=== PATIENT | male | born 1980 | race Caucasian/White ===

== ENCOUNTER 2025-04-12 14:23 | Inpatient (IN) | payer MEDICAID ==
[~2025-04-12] VITALS: Ht 185.4 cm; Wt 72.0 kg
[2025-04-12] MEDS ORDERED: NO HOME MEDS (14:42)
--- NOTE | 2025-04-12 14:54 | Physician Documentation ---
History of Present Illness ~ Chief Complaint: Abdominal Pain w/vomiting Stated Complaint: TRANSFER Time Seen by MD: 14:27 Source: patient, EMS, RN notes reviewed, EMS notes reviewed, old records Mode of Arrival: EMS Exam Limitations: no limitations HPI Chief Complaint: Abdominal pain, vomiting Caveat: None Independent Historians: None History of Present Illness: Patient is a 44-year-old man transferred here from [facility] for abdominal pain and vomiting secondary to a small-bowel obstruction. Patient went into the ER yesterday evening with sudden acute sharp abdominal pain with nausea and vomiting. Patient was found to have a small- bowel obstruction with a dilated stomach and dilated small bowel to the ileum on CT scan. Patient was given an NG-tube in his symptoms improved significantly. Patient is currently asymptomatic with no abdominal pain. Patient was treated with 4 mg of IV morphine, Dilaudid 0.5 mg, IV Tylenol 1000 mg IV patient was also given 1 L of LR. Patient was also given 40 mEq of IV potassium. Patient was also given lactulose. Patient has had a a scant amount of diarrhea. Patient's lab work was remarkable for a lactic acid of 3.6 that improved to 2. Review of systems: All systems were reviewed and are negative except for what is indicated in the history of present illness. Past Medical History: None per patient Past Surgical History: None per patient Social History: Patient denies drug use however he has a urine drug screen from [facility] that has positive for methamphetamine. Denies alcohol use. Admits to tobacco use. Medications: Reviewed as documented Nursing Notes Allergies: Reviewed as documented in Nursing Notes Medication Reconciliation Allergies: Coded Allergies: Penicillins (Unverified Allergy, Unknown, 04/12/25) Miscellaneous Medications Home Med List (No Home Medications), (Reported) Review of Systems All Other Systems at this time: Reviewed and Negative ROS Patient denies any other acute symptoms other than above. All other systems are negative Physical Exam Vital Signs: RN Vital Signs have been reviewed: Yes, Temperature: 98.4, Heart Rate: 70, Respiratory Rate: 16, BP: 128/84, Pulse Oximetry: 100, Weight: 72.000 Oxygen Flow Rate: 0 Pulse Oximetry Reflects: adequate oxygenation Physical Exam General Appearance: No distress, cachectic HEENT: Normal OP, moist oral mucosa, PERRL, EOMI, NG tube present Neck: supple, normal ROM, trachea midline Pulmonary: No respiratory distress, CTA, BS equal Cardiac: RRR, no murmur, rub or gallop, GI: nondistended, soft, nontender, normal bowel sounds, no guarding, no rebound Extremities: normal ROM, no swelling, non-tender Skin: intact, dry, warm, no rashes Neuro: AAOx3, speech is clear, no focal motor weakness Psych: normal affect, good eye contact, no apparent hallucination, normal speech Progress Results/Orders Results/Orders Orders - KODAK RAMIREZ MD Lipase (04/12/25 14:36) Urinalysis, Cult If Indicated (04/12/25 14:36) Morphine 4mg/Ml Inj. (Morphine Inj.) (04/12/25 14:40) Monitor (04/12/25 14:36) Saline Lock (04/12/25 14:36) Nothing By Mouth (04/12/25 Dinner) CMP (04/12/25 14:36) Chest,Single View (04/12/25 14:39) Normal Saline 1000ml (0.9% Sodium Chlori (04/12/25 14:40) Nasal Gastric Tube (04/12/25 ) Ct Abdomen Pelvis (04/12/25 15:43) Page Hospitalist (04/12/25 15:46) Fill Out Med Reconciliation (04/12/25 15:46) Lipid Panel (04/12/25 14:55) TSH (04/12/25 14:55) MG (04/12/25 14:55) Completed Orders - KODAK RAMIREZ MD Cbc/Diff (04/12/25 14:36) Ondansetron Inj. (Zofran 4mg/2ml Vial) (04/12/25 14:40) Chest,Single View (04/12/25 14:39) Ondansetron Inj. (Zofran 4mg/2ml Vial) (04/12/25 15:05) Ct Abdomen Pelvis (04/12/25 15:43) Medications Received in ER Medications (Trade) Dose Ordered Sig/Juan Route PRN Reason Start Time Stop Time Status Last Admin Dose Admin (Zofran 4mg/2ml vial) 4 mg ONCE ONCE IV 04/12/25 14:40 04/12/25 14:41 DC 04/12/25 15:35 4 MG (morphine inj.) 4 mg Q20M PRN IV moderate to severe pain 4-10 04/12/25 14:40 04/12/25 15:35 4 MG Sodium Chloride 1,000 ml @ 150 mls/hr Q6H40M ONCE IV 04/12/25 14:40 04/12/25 21:19 04/12/25 15:34 150 MLS/HR Vital Signs 04/12/25 04/12/25 04/12/25 14:24 14:42 15:35 Temp 98.4 Pulse 68 70 Resp 16 14 B/P (MAP) 129/89 128/84 (99) Pulse Ox 97 100 O2 Flow Rate 0 Laboratory Tests Test 04/12/25 14:55 White Blood Count 10.5 Red Blood Count 5.02 Hemoglobin 15.6 Hematocrit 45.9 Mean Corpuscular Volume 91.3 Mean Corpuscular Hemoglobin 31.1 H Mean Corpuscular Hemoglobin Concent 34.0 Red Cell Distribution Width 14.9 H Platelet Count 357 Mean Platelet Volume 7.3 L Neutrophils (%) (Auto) 70.4 Lymphocytes (%) (Auto) 15.8 L Monocytes (%) (Auto) 10.5 Eosinophils (%) (Auto) 3.0 Basophils (%) (Auto) 0.3 Neutrophils # (Auto) 7.4 Lymphocytes # (Auto) 1.6 Monocytes # (Auto) 1.1 H Eosinophils # (Auto) 0.3 Basophils # (Auto) 0.0 CBC Comment Sodium Level 142 Potassium Level 3.9 Chloride Level 108 H Carbon Dioxide Level 28.2 Anion Gap 6 L Blood Urea Nitrogen 11 Creatinine 0.88 Estimated GFR/1.73 m2 > 90 BUN/Creatinine Ratio 12.5 Glucose Level 92 Calcium Level 8.1 L Total Bilirubin 0.5 Aspartate Amino Transf (AST/SGOT) 13 Alanine Aminotransferase (ALT/SGPT) 14 Alkaline Phosphatase 46 Total Protein 6.3 L Albumin 3.1 L Globulin 3.2 Albumin/Globulin Ratio 1.0 L Lipase 21 Chemistry Comments Medical Decision Making Findings Differential diagnosis includes but is not limited to: Gastric outlet obstruction, small-bowel obstruction, internal hernia, sigmoid volvulus, cecal volvulus, colon cancer, electrolyte abnormalities, dehydration, acute kidney injury Chest x-ray, single view, indication: Abdominal pain Independent interpretation: NG tube present and is in the stomach. Lungs are clear, normal mediastinum, normal cardiac silhouette. No acute cardiopulmonary process. Abdomen and pelvis CT scan without IV contrast, indication: Abdominal pain, possible small-bowel obstruction Impression: 1. No acute findings identified. 2. Trace abdominopelvic ascites. Laboratory data independent interpretation: CBC: Remarkable CMP: Unremarkable Urinalysis: Emergency department course/medical decision-making: Patient is a 44-year-old man who presents with a small-bowel obstruction treated with a an NG-tube from [facility]. Patient is afebrile and hemodynam ically stable. Patient has a normal abdominal exam. Hospitalist will be called for admission and surgery will be consulted. Repeat lab work is ordered and pending. Lab work is unremarkable. There was no evidence of an acidosis given the patient's normal anion gap. Patient is placed on maintenance fluids at 150 cc of normal saline per hour. Patient is kept NPO with NG tube to low intermittent suction. Dr. clarke our surgeon has been consulted. Repeat CT of the abdomen and pelvis has been ordered in his pending because a disc of the prior imaging was never sent with the patient. CT scan does not show any acute process or small-bowel obstruction. Patient will still be admitted and patient will likely be able to start drinking clear liquids tomorrow. Consultation/communications: 3:46 p.m.: Call placed out to hospitalist for admission. 3:56 p.m.: Case discussed with the resident hospitalist, Dr. Ordonez. He will evaluate the patient for admission. Departure Time of Disposition: 14:59 Disposition: ADMITTED INPATIENT Admitted to Inpatient Unit: to hospitalist Admission Level of Care: Med/Surg Impression: Primary Impression: Small bowel obstruction Condition: Improved Referrals: NO PRIMARY CARE PROVIDER (PCP) Education Educated: Patient Educated regarding: diagnosis, treatment Signature Scribe Signature: No scribe Attestation: No scribe KODAK RAMIREZ MD Apr 12, 2025 14:54
--- NOTE | 2025-04-12 14:58 | RADIOLOGY REPORT ---
CHEST RADIOGRAPH Indication: tobacco use Technique: Single frontal view of the chest was obtained COMPARISON: None FINDINGS: Lines and Tubes: None Lungs: Clear Pleura: No effusion. No pneumothorax. Cardiomediastinal contours: Unremarkable Bones: Unremarkable IMPRESSION: 1. No acute disease.
[2025-04-12 15:05] LABS: MEAN PLATELET VOLUME 7.3 FL (7.4-10.4); RED CELL DISTRIBUTION WIDTH 14.9 % (11.5-14.5)
[2025-04-12] MEDS: ondansetron/PF 4mg/2ml inj IV ONE ×2 (15:05→15:35)
[2025-04-12 15:33] LABS: CREATININE 0.88 MG/DL (0.60-1.10); TOTAL CARBON DIOXIDE 28.2 MMOL/L (24-32); eCRCL 109 ML/MIN; eGFR > 90 ML/MIN
[2025-04-12] MEDS: normal saline 1000ml 1,000 ML IV ONE (15:34)
[2025-04-12] MEDS: morphine 4 MG/ML inj SYRINge IV PRN (15:35)
[2025-04-12] MEDS ORDERED: magnesium hydroxide 30ml (MOM) UD suspension PO PRN (16:00)
[2025-04-12] MEDS ORDERED: magnesium sulf-water 2g/50mL 50 ML IV PRN (16:00)
[2025-04-12] MEDS ORDERED: magnesium Cl slow-release 64mg tablet PO PRN (16:00)
[2025-04-12] MEDS ORDERED: HYDROmorphone/PF 0.2 MG/ML SYRINGE IV PRN (16:00)
[2025-04-12] MEDS ORDERED: magnesium sulf-water 4G/100mL 100 ML IV PRN (16:00)
[2025-04-12] MEDS ORDERED: potassium Cl 20 mEq SR tablet PO PRN ×2 (16:00)
[2025-04-12] MEDS ORDERED: mag hydrox/Alum hydrox/simeth 30ml oral suspension PO PRN (16:00)
[2025-04-12] MEDS ORDERED: LIDOcaine 2% jelly 6ml syringe ***for topical use only MM ONE (16:00)
[2025-04-12] MEDS ORDERED: potassium Cl 40MEQ/1/2NS 520ml 520 ML IV PRN (16:00)
[2025-04-12] MEDS ORDERED: HYDROcodone/acetaminophen 5mg/325mg tablet PO PRN (16:00)
[2025-04-12] MEDS: LidoCAINE 2% Topical Jelly 11mL syringe (UROJET) MM ONE (16:18)
--- NOTE | 2025-04-12 16:32 | RADIOLOGY REPORT ---
Exam: CT CT ABDOMEN PELVIS History: Abdominal Pain Comparison Study: None Technique: Multidetector spiral CT of the abdomen was performed from lung bases to pubic symphysis. Imaging was performed without IV contrast. Axial, coronal and sagittal multiplanar reformats were obtained from the axial data set by the technologist. Radiation Dose : 1. Abdomen/Pelvis: CTDIvol 15.3 mGy, DLP 864 mGy*cm. Findings: Evaluation of solid organs is limited due to lack of intravenous contrast use. Lung Bases: No acute or significant lung base finding. Normal heart size. No pleural or pericardial effusion. Liver: The liver is normal in size. No focal lesions. Gallbladder and Biliary Tree: Unremarkable Spleen: Unremarkable Pancreas: The pancreas is grossly normal in appearance. Adrenal Glands: Unremarkable Kidneys: Kidneys are grossly normal without calculi or hydronephrosis. Bladder: Grossly unremarkable for degree of distention. Bowel: Enteric tube tip is in the stomach. Small bowel and colon are normal in caliber and distribution. Normal appendix is visualized in the right lower quadrant without findings of appendicitis. Ascites: Trace abdominopelvic ascites. Lymphadenopathy: No mesenteric, retroperitoneal or periportal lymphadenopathy. Abdominal Wall and Mesentery: Unremarkable. Vasculature: The visualized abdominal aorta is normal in size and caliber. Evaluation of abdominal and pelvic vessels is limited due to lack of intravenous contrast. Pelvic Organs: Unremarkable Musculoskeletal: No aggressive focal bony lesions, acute fractures or dislocation. IMPRESSION: 1. No acute findings identified. 2. Trace abdominopelvic ascites. Radiation optimization: All CT scans at this facility use at least one of these dose optimization techniques: automated exposure control mA and/or kV adjustment per patient size (includes targeted exams where dose is matched to clinical indication) or iterative reconstruction.
[2025-04-12 16:44] LABS: CHOL/HDL RATIO 2.8 (0.00-4.99); LDL CHOLESTEROL 54 MG/DL (50-100)
[2025-04-12 17:00] VITALS: BP 124/87; PULSE 59; RESP 18; TEMP 98.4; O2SAT 96
--- NOTE | 2025-04-12 17:36 | HISTORY AND PHYSICAL-Residence ---
History & Physical Providers to CC Resident Creating Document: LORENMARY LOGAN ~ History of Present Illness Reason for Admit\Complaint: Small bowel Obstruction History of Present Illness This is a 44-year-old male transferred from [facility] for for abdominal pain and for small bowel obstruction. Two days ago patient experienced sudden sudden onset epigastric and left upper quadrant abdominal pain which was 10/10 intensity sharp non-radiating, no aggravating and relieving factors, in view of that patient went to [facility], NG tube and pain meds were given to patient and patient reports that pain meds helped him little bit. He denies any nausea vomiting however he is complaining of diarrhea since couple of days which is watery in nature,as per patient yesterday he was tolerating solid and liquid diet. Currently patient pain is improved and abdominal pain is 2/10 and reports mild chest pain. This is the 1st time he has experienced this type of abdominal pain. He never had EGD or colonoscopy done and denies any past abdominal surgeries As per Medical Record of [place] Patient was found to have small-bowel obstruction with dilated proximal small bowel and collapsed small bowel distal to the ileum trace free fluid and lactic acidosis in view of that patient was transferred to [facility] for high level of care for surgery. And NG tube was placed. This is the 1st time he has experienced this type of abdominal pain. He never had EGD or colonoscopy done and denies any past abdominal surgeries Allergies: Coded Allergies: Penicillins (Unverified Allergy, Unknown, 04/12/25) Home Medications Home Medications Active Reported No Home Medications (Home Med List) Each Past Medical History Past Medical History Denies any past medical history Past Surgical History Surgical History Comment Denies any past surgical history Family History Family History: Patient reports no known family medical history. Past Social History Social History Comment Patient smokes half a pack of cigarettes since 30 years Denies alcohol and other recreational drugs As per [facility] UA tox is positive for amphetamine Lives alone in a mobile home. 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 Chest pressure, chest discomfort, palpitations, syncope, lower extremity edema, paroxysmal nocturnal dyspnea Respiratory: Mild shortness of breath, no cough or hemptoysis Gastrointestinal: Normal appetite. No nausea, vomiting, diarrhea, constipation, hematemesis, bloating, melena or fresh blood, reports abdominal pain over epigastric and left upper quadrant pain Musculoskeletal:no joint pain, no deformities Integumentary: No change in skin, hair, nails. No swelling, bruising, abrasions Neurologic: No headache, neck pain, numbness or tingling of the extremities, weakness Psychiatric: No delusions, depression, loss of interest in normal activity or change in sleep pattern, hallucinations, suicidal ideations Endocrine: No fatigue, weakness, polydipsia, polyuria, change in appetite, heat or cold intolerance, sweating, dry skin Hematological: No bleeding, petechiae, bruising Exam Vitals: Vital Signs Date Time Temp Pulse Resp B/P (MAP) Pulse Ox O2 Delivery O2 Flow Rate FiO2 04/12/25 17:00 60 144/86 (105) 99 0 04/12/25 16:00 12 04/12/25 14:24 98.4 General: General: awake, alert oriented to place, time, and person HEENT: No pallor present, no icterus, moist mucous membranes Neck: No masses and tenderness Resp: Unlabored. Lungs clear to auscultation bilaterally. Chest: Normal expansion. Cardiovascular: Regular Rate and rhythm, normal S1 and S2 without murmur, rub or gallop Abdomen: Soft and tender in epigastric and left upper quadrant abdominal pain, no organomegaly, no guarding and rigidity, bowel sounds present Neuro: No focal weakness in the upper and lower limb muscles, power of the muscles 5/5 bilateral upper and lower extremities, normal reflexes bilaterally. Cranial nerves intact Extremities: No cyanosis,clubbing or edema Skin: Warm and Dry. Psych: Normal affect Diagnostic Data Last Recorded Lab Results: 04/12/25 1455 04/12/25 1455 Advance Care Planning Advanced Care plannin - 30 Minutes (I spent 17 minutes in discussing various resuscitative measures with the patient and he chose to be full code.) Additional Plan This is a 44-year-old male transferred from [facility] in view of abdominal pain and small-bowel obstruction. Small-bowel Obstruction Possibly Functional As per [facility]:Patient was found to have small-bowel obstruction with dilated proximal small bowel and collapsed small bowel distal to the ileum with trace free fluid and lactic acidosis. CT Abdomen/Pelvis performed today at [facility] shows 1. No acute findings identified. Trace abdominopelvic ascites. Small bowel obstruction possibly resolved after passing NG tube Recommended to have bowel rest WBC count normal Started patient on ondansetron 4 mg IV q.6h prn Started patient on LR 75 mL/hour Follow up with lactic acid Dr. Pena has been consulted, awaiting recommendations Tobacco Use Disorder Patient smokes half pack a day since 30 years Substance use navigator consulted Code Status: Full code DVT Prophylaxis: SCDs GI Prophylaxis: Pantoprazole IV 40 mg Disposition: Patient has NG tube, if the patient passes gas, clamp the NG tube and check if patient is tolerating liquid diet, has been consulted awaiting recommendations, possibly discharged tomorrow. PGY2 resident attestation: I have seen and evaluated the patient independently. I have reviewed the history, physical examination, laboratory and imaging findings and the assessment and plan documented by the PGY1 resident. I agree with the findings and plan as documented with the following additions/modifications: Partial small-bowel obstruction, NG tube having 200 mL of output. Patient is not passing gas yet, currently NPO. Surgeon consulted for recommendations. Tian Argueta MD PGY 2 internal medicine resident Date of Service: Apr 12, 2025 Billing Provider: LESTER TORO MD, SANJAY, RES Apr 12, 2025 17:36 TIAN MCKENNA, RES Apr 12, 2025 18:54
[2025-04-12] MEDS ORDERED: ondansetron/PF 4mg/2ml inj IV PRN (18:20)
[2025-04-12] MEDS: K and/or MAG REPLACEMENT MC SCH (20:00)
[2025-04-12] MEDS: docusate sod 100mg capsule PO SCH (20:00)
[2025-04-12] MEDS: ondansetron/PF 4mg/2ml inj IV PRN (21:34)
[2025-04-12 22:00] VITALS: BP 125/77; PULSE 61; RESP 15; TEMP 98.7; O2SAT 98
[2025-04-12] MEDS: HYDROmorphone inj. 0.5 MG/0.5 ML DISP.SYRIN IV PRN (23:41)
[2025-04-12] MEDS: ringers solution, lacted 1,000 ML IV SCH (23:55)
[2025-04-13 05:53] LABS: MEAN PLATELET VOLUME 8.0 FL (7.4-10.4); RED CELL DISTRIBUTION WIDTH 14.6 % (11.5-14.5)
[2025-04-13 06:00] VITALS: BP 121/76; PULSE 58; RESP 15; TEMP 97.9; O2SAT 97
[2025-04-13 06:05] LABS: APTT 28 SECONDS (22-32); INR 1.0 INR
[2025-04-13 06:22] LABS: CHOL/HDL RATIO 2.8 (0.00-4.99); CREATININE 0.81 MG/DL (0.60-1.10); LDL CHOLESTEROL 50 MG/DL (50-100); TOTAL CARBON DIOXIDE 30.0 MMOL/L (24-32); eCRCL 119 ML/MIN; eGFR > 90 ML/MIN
[2025-04-13 06:31] LABS: PHOSPHORUS 2.7 MG/DL (2.3-4.5)
[2025-04-13 07:46] VITALS: RESP 16
[2025-04-13 10:00] VITALS: BP 116/81; PULSE 57; RESP 20; TEMP 98; O2SAT 97
[2025-04-13] MEDS ORDERED: metoclopramide 5 mg/ml inj IV PRN (11:00)
[2025-04-13 18:00] VITALS: BP 109/75; PULSE 68; RESP 12; TEMP 98.4; O2SAT 98
--- NOTE | 2025-04-13 20:40 | PROGRESS NOTE- Residence ---
Progress Note - Resident Providers to CC Resident Creating Document: MORRIS WESLEY RES ~ Antibiotic Timeout Antibiotic Ordered?: No Subjective Patient was examined at the bedside, he is draining dark red color liquid from NG tube. He did not have any bowel movement Objective Vital Signs Date Time Temp Pulse Resp B/P (MAP) Pulse Ox O2 Delivery O2 Flow Rate FiO2 04/13/25 18:30 60 04/13/25 18:00 98.4 12 109/75 (86) 98 Room Air 04/13/25 08:00 0.0 Result Diagram: 04/13/2543504/13/25435 General: awake, alert oriented to place, time, and person HEENT: No pallor present, no icterus, moist mucous membranes Neck: No masses and tenderness Resp: Unlabored. Lungs clear to auscultation bilaterally. Chest: Normal expansion. Cardiovascular: Regular Rate and rhythm, normal S1 and S2 without murmur, rub or gallop Abdomen: Soft and tender in epigastric and left upper quadrant abdominal pain, no organomegaly, no guarding and rigidity, hypoactive bowel sounds heard on auscultation Neuro: No focal weakness in the upper and lower limb muscles, power of the muscles 5/5 bilateral upper and lower extremities, normal reflexes bilaterally. Cranial nerves intact Extremities: No cyanosis,clubbing or edema Skin: Warm and Dry. Psych: Normal affect Coagulation Studies Laboratory Tests Test 04/13/25 04:36 Prothrombin Time 10.7 SECONDS (9.0-12.0) INR International Normalized Ratio 1.0 INR Activated Partial Thromboplast Time 28 SECONDS (22-32) Coagulation Comments Advance Care Planning Advanced Care plannin - 30 Minutes Assessment Assessment Small-bowel Obstruction Possibly Functional As per [facility]:Patient was found to have small-bowel obstruction with dilated proximal small bowel and collapsed small bowel distal to the ileum with trace free fluid and lactic acidosis. CT Abdomen/Pelvis performed today at [facility] shows 1. No acute findings identified. Trace abdominopelvic ascites. Small bowel obstruction possibly resolved after passing NG tube Recommended to have bowel rest WBC count normal Started patient on ondansetron 4 mg IV q.6h prn Started patient on LR 75 mL/hour Follow up with lactic acid Dr. Pena has been consulted, awaiting recommendations 04/13/2025 was consulted and did not recommend any surgery Vitals are stable and labs are normal Started Protonix 40 mg IV b.i.d. and metoclopramide 10 mg IV q.6 h Continue maintenance fluids Discontinue NG tube Tobacco Use Disorder Patient smokes half pack a day since 30 years Substance use navigator consulted Code Status: Full code DVT Prophylaxis: SCDs GI Prophylaxis: Pantoprazole IV 40 mg b.i.d. Disposition- patient will be monitored in ortho, discontinue NG tube Morris Wesley PGY1-Internal Medicine Resident Date of Service: Apr 13, 2025 Billing Provider: MORRIS WESLEY, RES MORRIS WESLEY, MARY Apr 13, 2025 20:40
[2025-04-13 22:00] VITALS: BP 110/67; PULSE 66; RESP 18; TEMP 98.3; O2SAT 99
[2025-04-14 06:26] LABS: APTT 30 SECONDS (22-32); INR 1.0 INR
[2025-04-14 06:28] LABS: MEAN PLATELET VOLUME 7.5 FL (7.4-10.4); RED CELL DISTRIBUTION WIDTH 14.2 % (11.5-14.5)
[2025-04-14 06:41] LABS: CREATININE 0.88 MG/DL (0.60-1.10); PHOSPHORUS 2.9 MG/DL (2.3-4.5); TOTAL CARBON DIOXIDE 26.9 MMOL/L (24-32); eCRCL 109 ML/MIN; eGFR > 90 ML/MIN
--- NOTE | 2025-04-14 08:08 | ELECTROCARDIOGRAPH REPORT ---
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
[2025-04-14] MEDS ORDERED: PANT40TA54 PO (11:07)
[2025-04-14] MEDS ORDERED: POLY17PO10 PO (11:07)
[2025-04-14] MEDS ORDERED: DOCU100C40 PO (11:07)
--- NOTE | 2025-04-14 13:37 | DISCHARGE SUMMARY-Residence ---
Discharge Summary Providers to CC Resident Creating Document: MARRY SHAY, MARY CC: LESTER TORO MD ~ Discharge Summary Admission Diagnosis: Small Bowel Obstruction Hospital Course DATE OF ADMISSION: 04/12/2025 DATE OF DISCHARGE: 04/14/2025 Discharge Diagnosis\Comment: Small-bowel Obstruction, ruled out Tobacco Use Disorder Operations\Procedures: None Consultants: Surgery- Dr. Pena Complications: None Condition on DC: Stable New Medications: Docusate Sodium (Docusate Sodium) 100 Mg Caps 1 CAP PO BID for CONSTIPATION for 10 Days, #20 CAP Pantoprazole Sodium (Pantoprazole Sodium) 40 Mg Tablet.dr 40 MG PO BKF for 30 Days, #30 TAB.SR Polyethylene Glycol 3350* (Miralax*) 1 Packet Packet 1 PACKET PO HS PRN for CONSTIPATION for 7 Days, #7 PACKET Discharge Summary: HPI as per admitting physician: This is a 44-year-old male transferred from [facility] for for abdominal pain and for small bowel obstruction. Two days ago patient experienced sudden sudden onset epigastric and left upper quadrant abdominal pain which was 10/10 intensity sharp non-radiating, no aggravating and relieving factors, in view of that patient went to [facility], NG tube and pain meds were given to patient and patient reports that pain meds helped him little bit. He denies any nausea vomiting however he is complaining of diarrhea since couple of days which is watery in nature,as per patient yesterday he was tolerating solid and liquid diet. Currently patient pain is improved and abdominal pain is 2/10 and reports mild chest pain. This is the 1st time he has experienced this type of abdominal pain. He never had EGD or colonoscopy done and denies any past abdominal surgeries As per Medical Record of [facility] Patient was found to have small-bowel obstruction with dilated proximal small bowel and collapsed small bowel distal to the ileum trace free fluid and lactic acidosis in view of that patient was transferred to [facility] for high level of care for surgery. And NG tube was placed. Hospital course: A 44-year-old male transferred from [facility] for abdominal pain and for small bowel obstruction evaluation. CT abdomen done in our facility showed no acute findings. We placed a NG tube for the patient and started the patient on ondansetron and lactated ringer. was consulted and as per his evaluation patient did not require any surgery. We initiated the patient on Protonix and metoclopramide as well. Patient has chronic tobacco use disorder substance use navigator was consulted Significant imaging Abdominal CT 04/12/2025 IMPRESSION: 1. No acute findings identified. 2. Trace abdominopelvic ascites. Physical examination at the time of discharge General: awake, alert oriented to place, time, and person HEENT: No pallor present, no icterus, moist mucous membranes Neck: No masses and tenderness Resp: Unlabored. Lungs clear to auscultation bilaterally. Chest: Normal expansion. Cardiovascular: Regular Rate and rhythm, normal S1 and S2 without murmur, rub or gallop Abdomen: Soft and tender in epigastric and left upper quadrant abdominal pain, no organomegaly, no guarding and rigidity, hypoactive bowel sounds heard on auscultation Neuro: No focal weakness in the upper and lower limb muscles, power of the muscles 5/5 bilateral upper and lower extremities, normal reflexes bilaterally. Cranial nerves intact Extremities: No cyanosis,clubbing or edema Skin: Warm and Dry. Psych: Normal affect Vital Signs Date Time Temp Pulse Resp B/P (MAP) Pulse Ox O2 Delivery O2 Flow Rate FiO2 04/14/25 08:00 Room Air 0.0 04/13/25 22:00 98.3 66 18 110/67 (81) 99 Laboratory Tests Test 04/12/25 14:55 04/12/25 18:47 04/13/25 04:36 04/13/25 11:31 White Blood Count 10.5 X10'3 8.9 X10'3 Red Blood Count 5.02 X10'6 4.84 X10'6 Hemoglobin 15.6 g/dl 14.8 g/dl Hematocrit 45.9 % 44.1 % Mean Corpuscular Volume 91.3 FL 91.0 FL Mean Corpuscular Hemoglobin 31.1 PG 30.5 PG Mean Corpuscular Hemoglobin Concent 34.0 g/dL 33.5 g/dL Red Cell Distribution Width 14.9 % 14.6 % Platelet Count 357 X10'3 296 X10'3 Mean Platelet Volume 7.3 FL 8.0 FL Neutrophils (%) (Auto) 70.4 % 60.9 % Lymphocytes (%) (Auto) 15.8 % 24.3 % Monocytes (%) (Auto) 10.5 % 11.2 % Eosinophils (%) (Auto) 3.0 % 3.4 % Basophils (%) (Auto) 0.3 % 0.2 % Neutrophils # (Auto) 7.4 X10'3 5.4 X10'3 Lymphocytes # (Auto) 1.6 X10'3 2.2 X10'3 Monocytes # (Auto) 1.1 X10'3 1.0 X10'3 Eosinophils # (Auto) 0.3 X10'3 0.3 X10'3 Basophils # (Auto) 0.0 X10'3 0.0 X10'3 CBC Comment Sodium Level 142 MMOL/L 144 MMOL/L Potassium Level 3.9 MMOL/L 4.0 MMOL/L Chloride Level 108 MMOL/L 106 MMOL/L Carbon Dioxide Level 28.2 MMOL/L 30.0 MMOL/L Anion Gap 6 8 Blood Urea Nitrogen 11 MG/DL 9 MG/DL Creatinine 0.88 MG/DL 0.81 MG/DL Estimated GFR/1.73 m2 > 90 ML/MIN > 90 ML/MIN BUN/Creatinine Ratio 12.5 11.1 Glucose Level 92 MG/DL 76 MG/DL Calcium Level 8.1 MG/DL 8.1 MG/DL Magnesium Level 1.7 MG/DL 1.9 MG/DL Total Bilirubin 0.5 MG/DL 0.5 MG/DL Aspartate Amino Transf (AST/SGOT) 13 U/L 18 U/L Alanine Aminotransferase (ALT/SGPT) 14 U/L 18 U/L Alkaline Phosphatase 46 IU/L 45 IU/L Total Protein 6.3 G/DL 6.3 G/DL Albumin 3.1 G/DL 3.1 G/DL Globulin 3.2 G/DL 3.2 G/DL Albumin/Globulin Ratio 1.0 1.0 Triglycerides Level 66 MG/DL 67 MG/DL Cholesterol Level 102 MG/DL 99 MG/DL LDL Cholesterol 54 MG/DL 50 MG/DL HDL Cholesterol 36 MG/DL 36 MG/DL Cholesterol/HDL Ratio 2.8 2.8 Lipase 21 U/L Thyroid Stimulating Hormone (TSH) 3.38 ulU/ml Chemistry Comments Lactic Acid Level 1.0 MMOL/L 0.9 MMOL/L Prothrombin Time 10.7 SECONDS INR International Normalized Ratio 1.0 INR Activated Partial Thromboplast Time 28 SECONDS Coagulation Comments Phosphorus Level 2.7 MG/DL Test 04/14/25 05:37 04/14/25 07:54 04/14/25 08:59 White Blood Count 7.6 X10'3 Red Blood Count 4.76 X10'6 Hemoglobin 14.8 g/dl Hematocrit 43.4 % Mean Corpuscular Volume 91.3 FL Mean Corpuscular Hemoglobin 31.2 PG Mean Corpuscular Hemoglobin Concent 34.2 g/dL Red Cell Distribution Width 14.2 % Platelet Count 316 X10'3 Mean Platelet Volume 7.5 FL Neutrophils (%) (Auto) 54.7 % Lymphocytes (%) (Auto) 30.1 % Monocytes (%) (Auto) 9.9 % Eosinophils (%) (Auto) 4.6 % Basophils (%) (Auto) 0.7 % Neutrophils # (Auto) 4.2 X10'3 Lymphocytes # (Auto) 2.3 X10'3 Monocytes # (Auto) 0.8 X10'3 Eosinophils # (Auto) 0.3 X10'3 Basophils # (Auto) 0.1 X10'3 CBC Comment Prothrombin Time 10.7 SECONDS INR International Normalized Ratio 1.0 INR Activated Partial Thromboplast Time 30 SECONDS Coagulation Comments Sodium Level 140 MMOL/L Potassium Level 3.6 MMOL/L Chloride Level 104 MMOL/L Carbon Dioxide Level 26.9 MMOL/L Anion Gap 9 Blood Urea Nitrogen 11 MG/DL Creatinine 0.88 MG/DL Estimated GFR/1.73 m2 > 90 ML/MIN BUN/Creatinine Ratio 12.5 Glucose Level 60 MG/DL Calcium Level 8.3 MG/DL Phosphorus Level 2.9 MG/DL Magnesium Level 1.9 MG/DL Total Bilirubin 0.5 MG/DL Aspartate Amino Transf (AST/SGOT) 15 U/L Alanine Aminotransferase (ALT/SGPT) 12 U/L Alkaline Phosphatase 44 IU/L Total Protein 6.0 G/DL Albumin 2.7 G/DL Globulin 3.3 G/DL Albumin/Globulin Ratio 0.8 Chemistry Comments Glucometer 76 mg/dl 101 mg/dl Discharge instructions FOLLOWUP WITH PCP IN 1 WEEK WITH CBC,CMP. CALL 911 OR VISIT ER IF EMERGENCY. CONTINUE DOCUSATTE 100MG PO BID,MIRALAX 1 PACKETS PO HS PRN CONSTIPATION Discharge medications New Medications: Docusate Sodium 100 Mg Caps Pantoprazole Sodium 40 Mg Tablet. Polyethylene Glycol 3350* (Miralax*) 1 Packet Packet *Problems/Diagnosis: (1) Small bowel obstruction Status: Resolved Total Time Spent on D/C: Up to 30 Minutes Counseling Services Smoking & Tobacco Cessation: 3-10 Minutes Date of Service: Apr 14, 2025 Billing Provider: LESTER TORO MD, JAHNAVI, RES Apr 14, 2025 13:20
== END 2025-04-14 13:33 | disposition home or self-care (01) | DRG 251 ==
LOC: ER 14:24 → ED HOLD 16:04 → ORTHO 4S 18:00
PROVIDERS: ADMIT Family Medicine; ATTEND Family Medicine
DX: R10.12 Left upper quadrant pain (principal); E87.20 Acidosis, unspecified; F17.210 Nicotine dependence, cigarettes, uncomplicated
CPT/HCPCS: 36415; 71045; 74176; 80053; 80061; 82948; 83605; 83690; 83735; 84100; 84443; 85025; 85610; 85730; 87081; 93005; 96360; 99285; G0378; J1171; J2270; J2405; J2470; J7030; J7120